=== PATIENT | male | born 1975 ===

== ENCOUNTER → 2020-05-14 08:05 | Outpatient (CLI) | payer OTHER, SELFPAY ==
--- NOTE | ~2020-05-14 | MR_ITS ---
EXAMINATION: MR hand LT wo con DATE: 05/14/2020 09:13 INDICATION: Left thumb injury and swelling. TECHNIQUE: Magnetic resonance imaging (MRI) of the left hand was performed without intravenous contra st. Sequences included axial, coronal, and sagittal T1-weighted FSE and T2-weighted FS FSE. COMPARISON: None FINDINGS: Bone alignment is normal. No fracture. There is mild osteoarthritis of first carpometacarpa l joint and moderate osteoarthritis of first metacarpophalangeal joint and first interphalangeal join t. There is bone marrow edema of head of first metacarpal and in first proximal phalanx, likely stres s reaction. There is a partial tear of ulnar collateral ligament at first metacarpophalangeal joint c haracterized by thickening and increased signal intensity with non-smooth margins. The aponeurosis of the adductor pollicis muscle is in normal position. The flexor and extensor tendons are normal. Ther e is subcutaneous edema in the thumb. A skin marker overlies the thumb. IMPRESSION: 1. Partial tear of ulnar collateral ligament of the thumb at the metacarpophalangeal joint. No Stener lesion. 2. Polyarticular osteoarthritis. Reviewed, dictated and finalized at location A. SAFETY MANAGER IMPRESSION: 1. Partial tear of ulnar collateral ligament of the thumb at the metacarpophala ngeal joint. No Stener lesion. 2. Polyarticular osteoarthritis.
== END ==
DX: S63.105D Unspecified dislocation of left thumb, subsequent encounter (principal); X58.XXXD Exposure to other specified factors, subsequent encounter; M19.042 Primary osteoarthritis, left hand
CPT/HCPCS: 73218

== ENCOUNTER 2020-10-30 15:59 | Inpatient (IN) | payer OTHER, SELFPAY ==
[2020-10-30] VITALS (34 sets, daily range): BP systolic 147–186; BP diastolic 77–138; PULSE 110–131; RESP 16–24; TEMP 36.8–37.6; O2SAT 94–98
--- NOTE | ~2020-10-30 | CT_ITS ---
EXAMINATION: CTA chest PE protocol DATE: 10/30/2020 21:59 INDICATION: Shortness of breath and chest pain TECHNIQUE: Computed tomography (CT) of the chest was performed with 100 cc Omnipaque 350 intravenous contrast. Automated exposure control and iterative reconstruction technique were employed. Exam dose: 597.67 mGy-cm total exam DLP. COMPARISON: 10/30/2020 portable AP chest FINDINGS: Normal heart size. No pericardial or pleural effusion. No thoracic aortic aneurysm or dissection. No evidence of pulmonary embolism is detected. This mild limitation due to streak artifact from contr ast material bolus and breathing. No hilar or mediastinal mass lesion or lymphadenopathy. No pulmonary infiltrate or consolidation or pulmonary mass lesion. There is diffuse hepatic steatosis. Small sliding hiatal hernia. Included skeletal structures are unremarkable. IMPRESSION: No evidence of pulmonary embolism Hepatic steatosis Small sliding hiatal hernia Reviewed, dictated and finalized at Location A. Reviewed, dictated and finalized at location A.
--- NOTE | ~2020-10-30 | XR_ITS ---
EXAMINATION: XR chest 1V portable DATE: 10/30/2020 16:50 INDICATION: Medial chest pressure/tightness TECHNIQUE: frontal view of the chest was obtained. COMPARISON: None FINDINGS: The lungs are clear with no focal airspace opacities, pulmonary edema, pleural effusion or pneumothor ax. The cardiomediastinal silhouette is normal. Visualized bones and soft tissues are unremarkable. IMPRESSION: 1. No acute cardiopulmonary disease. Reviewed, dictated and finalized at location A.
--- NOTE | ~2020-10-30 | CT_ITS ---
EXAMINATION: CT brain wo con INDICATION: Dizziness COMPARISON: None TECHNIQUE: Standard unenhanced head CT. The dose-length product (DLP) was 605.33 mGy-cm. The mA was a djusted according to patient size. Iterative reconstruction technique was employed. FINDINGS: There is no intracranial hemorrhage, acute infarction, or abnormal mass lesion. The ventric les are normal. There is no abnormal mass effect or midline shift. The mayo-white matter differentiat ion is normal. The basal cisterns are patent. The orbits are normal. The paranasal sinuses, mastoids and calvarium are normal. IMPRESSION: 1. No acute intracranial abnormality. Reviewed, dictated and finalized at location B.
--- NOTE | 2020-10-30 16:38 | ECG_ITS ---
Measurements Intervals [place] Rate: 119 P: 20 LA: 151 QRS: 54 QRSD: 77 T: 56 QT: 301 QTc: 424 Interpretive Statements SINUS TACHYCARDIA BASELINE ARTIFACT- II, III, AVR, AVF, V3-V6 ABNORMAL ECG Electronically Signed On 10-30-2020 18:03:28 CDT by Nixon Coppola D.O.
[2020-10-30 17:04] LABS: Basophils Absolute Auto 0.1 K/mm3 (0.0-0.1); Basophils Percent Auto 1.3 % (0.2-1.2); Hemoglobin 17.3 g/dL (14.0-18.0); Immature Granulocyte Absolute 0.01 K/mm3 (0.00-0.031); Immature Granulocyte Percent A 0.2 % (0-0.5); Lymphocytes Absolute Auto 1.05 K/mm3 (0.9-3.2); Mean Corpuscular HGB Conc 34.6 g/dl (32-36); Mean Corpuscular Volume 86.7 fl (80-100); Mean Platelet Volume 8.7 fl (7.4-10.4); Monocytes Absolute Auto 0.5 K/mm3 (0.1-0.6); Monocytes Percent Auto 7.3 % (2.6-8.5); Neutrophils Absolute Auto 4.6 K/mm3 (1.3-6.7); Neutrophils Percent Auto 74.2 % (45.5-73.1); Platelet Count Result 301 k/mm3 (150-375); Red Blood Count 5.77 M/mm3 (4.6-6.20); Red Cell Distribution Width 12.7 % (11.5-14.5); White Blood Count 6.2 K/mm3 (4.5-10.0)
[2020-10-30 17:22] LABS: Alanine Aminotransferase 93 U/L (4-50); Albumin Level 5.2 g/dL (3.5-5.1); Alkaline Phosphatase 95 U/L (38-126); Anion Gap 24 mmol/L (8-16); Aspartate Amino Transferase 82 U/L (17-59); Blood Urea Nitrogen 14 mg/dL (9-20); Calcium 9.4 mg/dL (8.4-10.2); Carbon Dioxide 15 mmol/L (22-30); Chloride 99 mmol/L (98-107); Estimated CRCL calculation 99 ml/min; Estimated Glomerular Filt Rate > 60; Glucose 88 mg/dL (65-110); Lipase 78 U/L (23-300); Potassium 4.8 mmol/L (3.4-5.0); Sodium 138 mmol/L (137-145)
[2020-10-30 17:32] LABS: NT Pro B Type Natriuretic Pept 18 pg/mL (5-100); Troponin I < 0.012 ng/mL (0.000-0.034)
[2020-10-30 17:33] LABS: Partial Thromboplastin Time 24.5 SECONDS (22.3-36.8)
[2020-10-30 18:09] LABS: INR 0.9
[2020-10-30 18:12] LABS: Add Urine Microscopic? YES; Appearance Urine Clear (Clear); Bacteria Urine Trace /hpf; Bilirubin Urine Negative (Negative); Blood Urine 1+ (Negative); Color Urine Yellow (Yellow); Glucose Urine UA Negative (Negative); Ketones Urine 2+ mg/dL (Negative); Leukocyte Esterase Ur Negative LEU/UL (Negative); Mucus Urine Rare /lpf; Nitrate Urine Negative (Negative); Protein Urine 2+ mg/dL (Negative); RBC Urine 0-2 /hpf (0-2); Specific Grav Ur 1.026 (1.001-1.035); Squamous Epithelial Cell Urine Rare /hpf (Few); Urobilinogen Urine Negative mg/dL (<2.0); WBC Urine 0-3 /hpf
[2020-10-30] MEDS: THIAMINE HCL INJ 100 MG, FOLIC ACID INJ 1 MG, MULTIVITAMINS-12 INJ VIAL 1 5 ML, MULTIVI... 999 MG IV CONT (18:19)
[2020-10-30] MEDS: FAMOTIDINE 20 MG/2 ML VIAL IV PUSH (18:19)
[2020-10-30] MEDS: chlordiazePOXIDE (*CRX) 25 MG CAPSULE PO (18:19)
[2020-10-30] MEDS: LACTATED RINGERS 1,000 ML 999 ML IV CONT (18:26)
--- NOTE | 2020-10-30 18:50 | ED.GENADULT ---
HPI - General Adult General Chief complaint: Unspecified <Abhi Moran PA-C - Last Filed: 10/30/20 21:23> Stated complaint: not feeling right <NUPUR Randolph Last Filed: 10/30/20 21:23> Time Seen by Provider: 10/30/20 16:05 <NUPUR Randolph Last Filed: 10/30/20 21:23> Source: patient and RN notes reviewed <NUPUR Randolph Last Filed: 10/30/20 21:23> Mode of arrival: ambulatory <NUPUR Randolph Last Filed: 10/30/20 21:23> Limitations: no limitations <NUPUR Randolph Last Filed: 10/30/20 21:23> History of Present Illness HPI narrative: Patient is a 45-year-old male who presents for evaluation of not feeling well this morning noting that he felt discomfort in the chest and though his heart were beating fast patient does admit to being intoxicated last night. Patient notes that he has had some alcohol today. Patient has signed up for reevaluation by [facility] for the specific reason of alcohol abuse. Patient has had treatment in the past for this. Patient denies any suicidal or homicidal ideation. Patient notes that he would like to get help for his alcohol abuse. Patient denies recent illness vomiting diarrhea. On arrival patient denies chest pain. <NUPUR Randolph Last Filed: 10/30/20 21:23> Related Data Home medications: Home Medications Medication Instructions Recorded Confirmed escitalopram oxalate [Lexapro] 20 mg PO DAILY 10/31/20 10/31/20 <NUPUR Randolph Last Filed: 10/30/20 21:23> Allergies/adverse reactions: Allergies Allergy/AdvReac Type Severity Reaction Status Date / Time cephalexin Allergy Intermediate Rash Verified 10/31/20 12:26 <NUPUR Randolph Last Filed: 10/30/20 21:23> Review of Systems Review of Systems: All systems reviewed & are unremarkable except as noted in HPI and below <NUPUR Randolph Last Filed: 10/30/20 21:23> [facility] Past Medical History Medical History: Medical History (Updated 10/31/20 @ 14:05 by Shonda Bishop PA-C) Alcohol abuse Anxiety Erectile dysfunction Essential hypertension Insomnia <Abhi Moran PA-C - Last Filed: 10/30/20 21:23> Family History Family History: Family History Father Family history of cardiovascular disease Grandparent Family history of cardiovascular disease Other Diabetes mellitus Family history of arthritis Hypertension <Abhi Moran PA-C - Last Filed: 10/30/20 21:23> Social History Social History: Social History Smoking status: Never smoker Alcohol intake: current Drinks per week: 21 Substance use: never Substance use type: does not use Spiritual care concerns: No <Abhi Moran PA-C - Last Filed: 10/30/20 21:23> Exam Narrative: Exam Narrative: GENERAL: Well-appearing, well-nourished, and in no acute distress. HEAD: Normocephalic, atraumatic. EYES: PERRLA and EOMI. ENT: Nares clear, no rhinorrhea or epistaxis. Mucous membranes moist. CHEST: Clear to auscultation. No respiratory distress. No wheezes rales or rhonchi HEART: Regular rate and rhythm. No murmur heard. Normal peripheral pulses. ABDOMEN: Soft, nontender, nondistended EXTREMITIES: Normal range of motion. No edema. SKIN: Warm, dry, no rash. NEURO: No focal deficits. Alert and oriented x3. Cranial nerves II through XII grossly intact PSYCH: Normal mood and affect. <Abhi Moran PA-C - Last Filed: 10/30/20 21:23> Course Course Emergency Course: Patient continued to have some lightheadedness feels slightly dyspneic will scan his chest at this time given the tachycardia to rule out pulmonary embolus as a cause patient has been hydrated medicated this time is nontoxic-appearing and afebrile <Ahbi Moran PA-C - Last Filed: 10/30/20 21:23> Reevaluation(
[2020-10-30] MEDS: LORazepam INJ (*CRX) 2 MG/ML VIAL 1 MG IV PUSH (20:08)
[2020-10-30] MEDS: ONDANSETRON INJ 4 MG/2 ML VIAL IV PUSH (20:08)
[2020-10-30 20:29] LABS: Troponin I < 0.012 ng/mL (0.000-0.034)
[2020-10-30] MEDS: SODIUM CHLORIDE 0.9% IV 1,000 ML 999 ML IV CONT (21:26)
[2020-10-30 22:29] LABS: Alveolar/Arterial O2 Gradient 27.4 mmHg; Base Excess ABG -7.9 mEq/l (+/-2.0); Fractional Inspired Oxygen 21 %; HCO3 ABG 16.8 mEq/l (22.0-26.0); Oxygen Content ABG 20.4 %vol (16.0-22.0); Oxygen Saturation ABG 95.7 % (95.0-100.0); PCO2 ABG 32.4 mmHg (35.0-45.0); PO2 ABG 83.5 mmHg (80.0-100.0); PO2 FiO2 Ratio Arterial Blood 3.98 %; Total Hemoglobin 15.4 g/dL (12.0-18.0); pH ABG 7.332 (7.350-7.450)
[2020-10-30 22:30] LABS: Device ROOM AIR; Modified Allen's Test Pass; Site Drawn LEFT RADIAL
[2020-10-30 22:58] LABS: Barbiturate Screen Urine Negative (Negative); Benzodiazepines Screen Urine Negative (Negative)
[2020-10-30 22:59] LABS: Amphetamine Screen Urine Negative (Negative); Cannabinoid Screen Urine Negative (Negative); Cocaine Screen Urine Negative (Negative); Opiate Screen Urine Negative (Negative); Phencyclidine Screen Urine Negative (Negative)
[2020-10-30 23:03] LABS: Ethanol 76 mg/dL (<10)
[2020-10-30 23:12] LABS: Troponin I 0.014 ng/mL (0.000-0.034)
[2020-10-30] MEDS: LABETALOL HCL INJ 100 MG/20 ML VIAL 20 MG IV PUSH (23:32)
[2020-10-30 23:34] LABS: Methadone Screen Urine Negative (Negative)
[2020-10-31] VITALS (18 sets, daily range): BP systolic 155–213; BP diastolic 81–112; PULSE 76–125; RESP 16–24; TEMP 36.4–37.1; O2SAT 91–100; BMI 32.5
--- NOTE | 2020-10-31 | ECHO_ITS ---
Patient Info Name: Dima Rosa Age: 45 years : 1975 Gender: Male Ht: 70 in Wt: 230 lbs BSA: 2.30 m2 HR: 98 bpm BP: 212 / 108 mmHg Technical Quality: Good Exam Date: 10/31/2020 10:44 AM Exam Location: [facility] Patient Status: Inpatient Admit Date: 10/31/2020 Staff Ordering Physician: Shonda Bishop PA-C Salt Grinder: Keli Nuñez RDCS Attending Provider: Shonda Bishop PA-C Referring Physician: Dario RAO; Exam Type: CA echo doppler color flow Study Info Indications R00.2 - Palpitations Complete two-dimentional, color flow and Doppler transthoracic echocardiogram is performed with agitated saline and with contrast to opacify the left ventricle and to improve the delineation of the left ventricle endocardial borders. Summary 1. Left ventricular chamber dimension is normal. 2. Left ventricular systolic function is normal, estimated at 65-70%. 3. There is mildly increased left ventricular wall thickness. 4. The left ventricular diastolic function is grade I diastolic dysfunction. 5. E/e' 7 is not elevated. 6. Left atrial chamber dimension is mildly enlarged. 7. No pulmonary hypertension, estimated pulmonary arterial systolic pressure is 29 mmHg. Left Ventricle E/e' 7 is not elevated. Left ventricular chamber dimension is normal. Left ventricular systolic function is normal, estimated at 65-70%. There is mildly increased left ventricular wall thickness. The left ventricular diastolic function is grade I diastolic dysfunction. Right Ventricle Right ventricular chamber dimension is normal. Right ventricular systolic function is normal. Left Atria Left atrial chamber dimension is mildly enlarged. Right Atria Right atrial chamber dimension is normal. Aortic Valve The aortic valve is trileaflet. There is no aortic valve stenosis. There is no aortic valve regurgitation. Pulmonic Valve There is no pulmonic regurgitation. Mitral Valve There is no mitral valve stenosis. There is no mitral valve regurgitation. Tricuspid Valve There is no tricuspid valve regurgitation. No pulmonary hypertension, estimated pulmonary arterial systolic pressure is 29 mmHg. Pericardium/Pleural There is no pericardial effusion. Inferior Vena Cava Normal inferior vena cava with >50% collapse upon inspiration consistent with normal right atrial pressure, 5 mmHg. Aorta The aortic root size at the sinus of Valsalva is normal. Left Ventricular Outflow Tract Name Value Normal LVOT 2D LVOT Diameter 2.1 cm LVOT Doppler LVOT Peak Gradient 6 mmHg LVOT Mean Gradient 4 mmHg LVOT VTI 27 cm LVOT VTI/AV VTI Ratio 0.9 LVOT Stroke Volume 94 ml LVOT CO 21.4 l/min LVOT CI 9.3 l/min/m2 Pulmonic Valve Name Value Normal
[2020-10-31 00:22] LABS: Lactic Acid Reflex 3.1 mmol/L (0.7-2.1)
--- NOTE | 2020-10-31 00:50 | ADMGEN ---
This patient, Dima Rosa, was admitted to Medical Room 251-. Patient/family oriented to hospital policies and general routines including ID bracelet, bed and alarms, visiting hours, pain management, procedures, bathroom and other care routines, personal items, smoking policy, room service/diet, and visiting hours. Information on how to activate the Rapid Response Team has been discussed. Patient/Family are encouraged to report perceived risks to care and to ask questions if they do not understand what they are told or what they should do.
[2020-10-31] MEDS: SODIUM CHLORIDE 0.9% IV 1,000 ML 125 ML IV CONT (01:07)
--- NOTE | 2020-10-31 01:39 | PM.IMHP ---
H&P: HPI History of Present Illness Date/Time: 10/31/20 01:39 Chief Complaint: CHEST DISCOMFORT Narrative: THIS IS A 45-YEAR-OLD MALE WITH PAST MEDICAL HISTORY SIGNIFICANT FOR GENERALIZED ANXIETY DISORDER, ALCOHOL ABUSE. PATIENT PRESENTED TO THE EMERGENCY ROOM AFTER HE WAS AT HOME MOVING HEAVY OBJECTS AROUND AND HE FELT LIGHTHEADED AND HIS HEART POUNDING IN HIS CHEST HE DECIDED TO COME TO THE EMERGENCY ROOM. UPON PRESENTATION TO THE EMERGENCY ROOM HE WAS FOUND TO BE IN SINUS TACHYCARDIA. PATIENT HAD BEEN DRINKING WELL. HE HAS BEEN IN HIS USUAL STATE OF HEALTH UP UNTIL THESE HE DENIES ANY SHORTNESS OF BREATH COUGH SPUTUM PRODUCTION CHEST PAIN WITH ACTIVITY PND ORTHOPNEA LEG SWELLING CLAUDICATION ON LIGHTHEADEDNESS. PRELIMINARY WORKUP WAS SIGNIFICANT FOR METABOLIC ACIDOSIS AND KETONES PRESENT AN ELEVATED ALCOHOL LEVEL WITH ABNORMAL LIVER ENZYME IS SLIGHTLY ABOVE NORMAL. DECISION HAS BEEN MADE TO PLACE THE PATIENT IN OBSERVATION. Review of Systems Review of Systems: Narrative: POUNDING OF THE CHEST Constitutional: Constitutional: Denies chills, Denies fatigue, Denies fever(s), Denies lethargy and Denies weakness Eyes: Eyes: Denies change in vision ENT: Denies dysphagia, Denies nasal congestion and Denies nasal obstruction Cardiovascular: Cardiovascular: Denies syncope, Denies irregular heart rhythm, Denies claudication, Denies radiating jaw, neck or arm pain, Reports palpitations, Denies dyspnea, Denies dyspnea on exertion and Denies paroxysmal nocturnal dyspnea Respiratory: Respiratory: Denies cough and Denies dyspnea Gastrointestinal: Gastrointestinal: Denies dyspepsia, Denies heartburn, Denies diarrhea, Denies nausea and Denies vomiting Genitourinary: Genitourinary: Reports no additional male genitourinary complaints Musculoskeletal: Musculoskeletal: Reports no additional musculoskeletal complaints Integumentary/Breasts: Skin/Breast: Reports system reviewed and no additional complaints, except as docu Neurologic: Reports system reviewed and no additional complaints, except as documented Psychiatric: Psychiatric: Reports no additional psychiatric complaints Endocrine: Endocrine: Reports no additional endocrine complaints Hematologic/Lymphatic: Hematologic/Lymphatic: Reports no additional hematologic/lymphatic complaints Allergic/Immunologic: Allergic/Immunologic: Reports no additional allergic/immunologic complaints [facility] Past Medical History Medical History (Updated 10/31/20 @ 01:46 by Kem Soto MD) Alcohol abuse Anxiety Erectile dysfunction Essential hypertension Insomnia Family History Family History Father Family history of cardiovascular disease Grandparent Family history of cardiovascular disease Other Diabetes mellitus Family history of arthritis Hypertension Social History Social History Smoking status: Never smoker Alcohol intake: current Drinks per week: 21 Substance use: never Substance use type: does not use Spiritual care concerns: No Meds Home Medications and Allergies Home Medications Medication Instructions Recorded Confirmed Type escitalopram oxalate [Lexapro] 20 mg PO DAILY 10/31/20 10/31/20 History Allergies Allergy/AdvReac Type Severity Reaction Status Date / Time cephalexin AdvReac Intermediate Rash Verified 10/31/20 01:05 Vital Signs Vital Signs - 24 hr 10/30/20 15:58 10/30/20 16:22 10/30/20 17:00 Temperature 99.7 F H Pulse Rate 127 H 130 H 117 H Respiratory Rate 20 19 19 Blood Pressure 164/102 H 159/95 H Pulse Oximetry 96 95 97 10/30/20 17:03 10/30/20 17:15 10/30/20 17:16 Temperature Pulse Rate 119 H 120 H 123 H Respiratory Rate 22 H 16 18 Blood Pressure 158/93 H 156/92 H Pulse Oximetry 95 97 95 10/30/20 17:30 10/30/20 17:31 10/30/20 17:45 Temperature Pulse Rate 127 H 116 H 115 H Respirator
[2020-10-31 03:07] LABS: Reflex Lactic Acid Yes or No Add Lactic
[2020-10-31 03:36] LABS: Lactic Acid 1.3 mmol/L (0.7-2.1)
[2020-10-31] MEDS: THIAMINE HCL INJ 100 MG, FOLIC ACID INJ 1 MG, MULTIVITAMINS-12 INJ VIAL 1 5 ML, MULTIVI... IV CONT (04:29)
[2020-10-31 08:35] LABS: Alanine Aminotransferase 75 U/L (4-50); Albumin Level 4.6 g/dL (3.5-5.1); Alkaline Phosphatase 72 U/L (38-126); Anion Gap 12 mmol/L (8-16); Aspartate Amino Transferase 60 U/L (17-59); Bilirubin,Total 1.8 mg/dL (0.2-1.3); Blood Urea Nitrogen 9 mg/dL (9-20); Calcium 8.6 mg/dL (8.4-10.2); Carbon Dioxide 21 mmol/L (22-30); Chloride 101 mmol/L (98-107); Estimated CRCL calculation 99 ml/min; Estimated Glomerular Filt Rate > 60; Glucose 95 mg/dL (65-110); Potassium 4.4 mmol/L (3.4-5.0); Sodium 134 mmol/L (137-145)
[2020-10-31 08:46] LABS: Troponin I < 0.012 ng/mL (0.000-0.034)
[2020-10-31] MEDS: ENOXAPARIN 40 MG/0.4 ML SYRINGE SUB-Q (09:10)
[2020-10-31] MEDS: ESCITALOPRAM OXALATE 10 MG TABLET 20 MG PO (09:10)
[2020-10-31] MEDS: hydrALAZINE HCL 20 MG/ML VIAL 10 MG IV PUSH ×2 (09:11→17:52)
[2020-10-31] MEDS: LABETALOL HCL INJ 100 MG/20 ML VIAL 20 MG IV PUSH (10:58)
[2020-10-31] MEDS: ONDANSETRON INJ 4 MG/2 ML VIAL IV PUSH (12:59)
[2020-10-31] MEDS: PANTOPRAZOLE 40 MG TABLET PO (12:59)
[2020-10-31] MEDS: amLODIPine BESYLATE 5 MG TABLET PO (12:59)
[2020-10-31] MEDS: chlordiazePOXIDE (*CRX) 25 MG CAPSULE PO ×2 (12:59→20:40)
--- NOTE | 2020-10-31 14:01 | PM.IMPN ---
Progress Note: A&P Assessment and Plan (1) Uncontrolled hypertension: Code(s): I10 - Essential (primary) hypertension Status: Acute Assessment and Plan: Patient has had uncontrolled hypertension all morning with the highest being 213/112 now 184/94 -he has received hydralazine, labetalol, and amlodipine thus far - he has no signs and symptoms of chest pain, shortness of breath or stroke-like symptoms - Librium also started - will continue adjusting medications until blood pressure is closer to goal. plan to decrease by 25% within the next 24-48 hours -Pt to let us know immediately if he has CP or any neurological symptom. Librium also started for anxiety component (2) Alcohol withdrawal: Code(s): F10.239 - Alcohol dependence with withdrawal, unspecified Status: Acute Assessment and Plan: patient appeared anxious on exam with tremor -he drinks about a pt of vodka a day - will start Librium 25 mg scheduled and p.r.n. Ativan - no history of withdrawal seizures - monitor closely (3) Transaminitis: Code(s): R74.01 - Elevation of levels of liver transaminase levels Status: Acute Assessment and Plan: up likely due to alcohol abuse - check hepatitis screen in the morning - consider right upper quadrant ultrasound if they worsen. Chest CT did show hepatic steatosis (4) Anxiety: Code(s): F41.9 - Anxiety disorder, unspecified Status: Acute Assessment and Plan: Continue librium -improved with this medication Time Spent With Patient Time with patient: 25 - 35 minutes Subjective Date/time seen: 10/31/20 14:01 Interval history: Pt is a 45-year-old male here for uncontrolled hypertension. Patient was seen today and was feeling anxious. He says his last drink was Saturday afternoon and he is starting to have tremors. He usually drinks half a pt to a pt of vodka a day and has done that for years. He has no history of withdrawal seizures but has never been able to quit in the past. He has not been having any hallucinations although he does feel clammy. He denies chest pain, palpitations, headache, double vision, stroke-like symptoms, or vomiting. He had some nausea last night and again this morning. He says he has no history of elevated blood pressure that he knows of. He denies jaw pain and arm pain. he has no thoughts of harming himself or others. Review of Systems Review of Systems: All systems reviewed & are unremarkable except as noted in HPI and below Exam Narrative: Exam Narrative: General: Well developed well nourished patient in NAD HEENT: normocephalic Neck: supple Neuro: Alert and oriented x4. slight tremor noted on exam CV:RRR. telemetry shows sinus tachycardia earlier today which has improved. Resp:CTA Abd: Soft, non distended. No pain to palpation. Positive bowel sounds Extremities: No swelling, erythema, or pain to palpation. Objective Data Vital Signs Vital Signs: Vital Signs - 24 hr 10/30/20 15:58 10/30/20 16:22 10/30/20 17:00 Temperature 99.7 F H Pulse Rate 127 H 130 H 117 H Respiratory Rate 20 19 19 Blood Pressure 164/102 H 159/95 H Pulse Oximetry 96 95 97 10/30/20 17:03 10/30/20 17:15 10/30/20 17:16 Temperature Pulse Rate 119 H 120 H 123 H Respiratory Rate 22 H 16 18 Blood Pressure 158/93 H 156/92 H Pulse Oximetry 95 97 95 10/30/20 17:30 10/30/20 17:31 10/30/20 17:45 Temperature Pulse Rate 127 H 116 H 115 H Respiratory Rate 19 19 20 Blood Pressure 147/77 H Pulse Oximetry 96 96 96 10/30/20 17:46 10/30/20 18:00 10/30/20 18:01 Temperature Pulse Rate 120 H 121 H 122 H Respiratory Rate 23 H 20 21 H Blood Pressure 151/86 H 156/138 H Pulse Oximetry 96 95 94 10/30/20 18:15 10/30/20 18:16 10/30/20 18:30 Temperature Pulse Rate 128 H 124 H 114 H Respiratory Rate 21 H 19 18 Blood Pressure 149/102 H Pulse Oximetry 95 94 97 10/30/20 18:31 10/30/20 18:45
[2020-10-31] MEDS: LABETALOL HCL INJ 100 MG/20 ML VIAL IV PUSH (21:31)
[2020-11-01] VITALS (7 sets, daily range): BP systolic 148–177; BP diastolic 84–104; PULSE 87–127; RESP 17–20; TEMP 35.8–36.8; O2SAT 96–98
[2020-11-01] MEDS: chlordiazePOXIDE (*CRX) 25 MG CAPSULE PO ×3 (05:29→20:58)
[2020-11-01 05:37] LABS: Hematocrit 45.2 % (42.0-52.0); Hemoglobin 15.7 g/dL (14.0-18.0); Mean Corpuscular HGB Conc 34.7 g/dl (32-36); Mean Corpuscular Hemoglobin 29.8 pg (26-34); Mean Corpuscular Volume 85.8 fl (80-100); Platelet Count Result 201 k/mm3 (150-375); Red Blood Count 5.27 M/mm3 (4.6-6.20); Red Cell Distribution Width 12.4 % (11.5-14.5); White Blood Count 6.4 K/mm3 (4.5-10.0)
[2020-11-01 05:44] LABS: Alanine Aminotransferase 71 U/L (4-50); Albumin Level 4.3 g/dL (3.5-5.1); Alkaline Phosphatase 70 U/L (38-126); Anion Gap 10 mmol/L (8-16); Aspartate Amino Transferase 58 U/L (17-59); Bilirubin,Total 1.4 mg/dL (0.2-1.3); Blood Urea Nitrogen 8 mg/dL (9-20); Calcium 9.1 mg/dL (8.4-10.2); Carbon Dioxide 25 mmol/L (22-30); Chloride 101 mmol/L (98-107); Estimated CRCL calculation 98 ml/min; Estimated Glomerular Filt Rate > 60; Glucose 94 mg/dL (65-110); Potassium 3.6 mmol/L (3.4-5.0); Sodium 136 mmol/L (137-145)
[2020-11-01 07:12] LABS: Hepatitis B Surface Antigen Negative (Negative)
[2020-11-01 07:18] LABS: HAV RESULT Negative (Negative); Hepatitis B Core IgM Result Negative (Negative)
[2020-11-01 07:30] LABS: Hepatitis C Virus Antibody Negative (Negative)
[2020-11-01] MEDS: ESCITALOPRAM OXALATE 10 MG TABLET 20 MG PO (09:26)
[2020-11-01] MEDS: amLODIPine BESYLATE 5 MG TABLET PO (09:26)
[2020-11-01] MEDS: FOLIC ACID 1 MG TABLET PO (09:26)
[2020-11-01] MEDS: PANTOPRAZOLE 40 MG TABLET PO (09:26)
[2020-11-01] MEDS: THIAMINE HCL 100 MG TABLET PO (09:26)
[2020-11-01] MEDS: ENOXAPARIN 40 MG/0.4 ML SYRINGE SUB-Q (09:26)
--- NOTE | 2020-11-01 12:00 | PM.IMPN ---
Progress Note: A&P Assessment and Plan (1) Uncontrolled hypertension: Code(s): I10 - Essential (primary) hypertension Status: Acute Assessment and Plan: Patient has had uncontrolled hypertension all morning with the highest being 213/112. Slowly improving with 25% reduction in systolic BP in 24 hrs. Last BP 156/100 - he has received hydralazine, labetalol, and amlodipine thus far - continue with amlodipine 5 mg. Recheck this afternoon. consider uptitration of medication or additional agent based on BP trends - he has no signs and symptoms of chest pain, shortness of breath or stroke-like symptoms - will continue adjusting medications until blood pressure is closer to goal. - Pt instructed to inform staff immediately if he has CP or any neurological symptom. Librium also started for anxiety component (2) Alcohol withdrawal: Code(s): F10.239 - Alcohol dependence with withdrawal, unspecified Status: Acute Assessment and Plan: Drinks approximately 1 pint of vodka daily. - Last drink was 10/30/20 in the afternoon - Feeling okay today with improvement in anxiety and tremor - Continue CIWA protocol. Scores ranging from 2-3. - Continue Librium 25 mg q8h scheduled. Plan to taper based on symptoms - Ativan prn CIWA >8 - He is considering inpatient rehab. Care coordination following for resources (3) Transaminitis: Code(s): R74.01 - Elevation of levels of liver transaminase levels Status: Acute Assessment and Plan: Improving. Likely due to alcohol abuse - hepatitis panel negative - consider right upper quadrant ultrasound if worsening. - hepatic steatosis noted on CT. Lifestyle modifications discussed. (4) Anxiety: Code(s): F41.9 - Anxiety disorder, unspecified Status: Acute Assessment and Plan: Improved today -improved with librium Subjective Date/time seen: 11/01/20 12:00 Interval history: Date of service: 11/01/2020 Dima Rosa is a 45-year-old male with history of alcohol abuse, anxiety, and hypertension who is seen in follow-up for uncontrolled hypertension and alcohol withdrawal. states 1 time before he was in the hospital and was given medicine for blood pressure but has not taken any antihypertensives since this time and has not followed up for blood pressure monitoring His last drink was in the afternoon on 10/30/2020. He is feeling better. He denies headache. Denies chest pain, palpitations, shortness of breath. No dizziness or lightheadedness. No nausea or vomiting. He is able to tolerate his regular diet. Reports only very mild tremor. Occasional sweats. No fevers. Denies hallucinations or confusion. No agitation or restlessness. He slept well last night. Denies cough. Denies dysuria. No diarrhea or constipation. States that he is considering inpatient rehab programs. He has some program information at the bedside and is planning to call some places today. Review of Systems Review of Systems: All systems reviewed & are unremarkable except as noted in HPI and below Exam Narrative: Exam Narrative: Mr. Rosa is a well-nourished, well-appearing 45-year-old male who is lying semi recumbent bed. he appears comfortable and is in NARD. Neuro: awake, alert and oriented x4, speech clear, no focal neuro deficits noted, no tremor noted with outstretched hand HEENMT: normocephalic, atraumatic, EOMI, sclerae anicteric, moist oral mucosa Neck: supple, no lymphadenopathy Respiratory: clear to auscultation bilaterally, nonlabored breathing Cardio: regular rate, regular rhythm with S1-S2 Abdomen: nondistended, normoactive bowel sounds, soft, nontender to palpation Extremities: no edema, erythema, cyanosis, clubbing, or tenderness to palpation, DP pulses 2+ bilaterally Skin: no rashes or lesions, warm and slightly doamp Psych: appropriate mood and affect, judgment and insight intact Objective Data Vital Signs Cat
[2020-11-01] MEDS: hydrALAZINE HCL 20 MG/ML VIAL 10 MG IV PUSH (14:18)
[2020-11-01] MEDS: LABETALOL HCL INJ 100 MG/20 ML VIAL IV PUSH (21:50)
[2020-11-02] VITALS (7 sets, daily range): BP systolic 123–156; BP diastolic 63–92; PULSE 66–130; RESP 18–20; TEMP 36.6–36.8; O2SAT 94–98
[2020-11-02 06:01] LABS: Alanine Aminotransferase 103 U/L (4-50); Albumin Level 4.2 g/dL (3.5-5.1); Alkaline Phosphatase 65 U/L (38-126); Anion Gap 12 mmol/L (8-16); Aspartate Amino Transferase 86 U/L (17-59); Bilirubin,Total 1.3 mg/dL (0.2-1.3); Blood Urea Nitrogen 15 mg/dL (9-20); Calcium 9.3 mg/dL (8.4-10.2); Carbon Dioxide 23 mmol/L (22-30); Chloride 99 mmol/L (98-107); Estimated CRCL calculation 98 ml/min; Estimated Glomerular Filt Rate > 60; Glucose 93 mg/dL (65-110); Potassium 3.3 mmol/L (3.4-5.0); Sodium 134 mmol/L (137-145)
[2020-11-02] MEDS: chlordiazePOXIDE (*CRX) 25 MG CAPSULE PO ×2 (06:13→13:19)
[2020-11-02] MEDS: POTASSIUM CHLORIDE 20 MEQ TABLET PO (09:25)
[2020-11-02] MEDS: PANTOPRAZOLE 40 MG TABLET PO (09:25)
[2020-11-02] MEDS: ESCITALOPRAM OXALATE 10 MG TABLET 20 MG PO (09:25)
[2020-11-02] MEDS: ENOXAPARIN 40 MG/0.4 ML SYRINGE SUB-Q (09:25)
[2020-11-02] MEDS: FOLIC ACID 1 MG TABLET PO (09:25)
[2020-11-02] MEDS: THIAMINE HCL 100 MG TABLET PO (09:25)
[2020-11-02] MEDS: amLODIPine BESYLATE 5 MG TABLET 10 MG PO (09:25)
[2020-11-02] MEDS: SODIUM CHLORIDE 0.9% IV 500 ML IV CONT (13:19)
--- NOTE | 2020-11-02 16:11 | PM.DS ---
DS: Admitting Diagnosis Admitting Diagnosis Admitting Diagnosis: Uncontrolled HTN DS: Discharge Diagnosis Discharge Diagnosis (1) Uncontrolled hypertension: Code(s): I10 - Essential (primary) hypertension Status: Acute Assessment and Plan: Patient present with elevated blood pressures up to 213/112. He had not been on any medication for hypertension prior to presentation. he received hydralazine, labetalol, and amlodipine and he did have slow improvement of blood pressure with 25% reduction in systolic BP over 24 hrs. he was started on amlodipine 10 mg daily and his blood pressures were better controlled. He will need to monitor his blood pressure at home and record for review by PCP for further adjustment of blood pressure medication. He remained asymptomatic without headaches, chest pain, or neurologic symptoms. (2) Alcohol withdrawal: Code(s): F10.239 - Alcohol dependence with withdrawal, unspecified Status: Acute Assessment and Plan: Drinks approximately 1 pint of vodka daily. Last drink was 10/30/20. Started on Librium and CIWA scores were between 0-5. he had symptoms of anxiety and tremor that did improve. He will continue with a Librium taper as an outpatient. He is interested in pursuing inpatient rehab. Resources were provided and he has been in contact with facilities. Alcohol cessation discussed at length. (3) Transaminitis: Code(s): R74.01 - Elevation of levels of liver transaminase levels Status: Acute Assessment and Plan: Improving. Likely due to alcohol abuse. Hepatitis panel negative. Additionally, hepatic steatosis noted on CT scan. Lifestyle modifications discussed. He will need to follow-up with his PCP for further monitoring. (4) Anxiety: Code(s): F41.9 - Anxiety disorder, unspecified Status: Acute Assessment and Plan: Improved with management of withdrawal symptoms. Continue Librium taper. Continue Lexapro (5) Sinus tachycardia: Code(s): R00.0 - Tachycardia, unspecified Status: Acute Assessment and Plan: Presented with palpitations. Monitored on telemetry and was noted to be tachycardic, mostly in the 110s, occasionally up to 130s. EKG at presentation demonstrated sinus tachycardia. CTA negative for PE. Echo with normal EF. TSH within normal limits. IV fluid bolus administered and he was euvolemic. Palpitations resolved and he was asymptomatic. Suspect related to alcohol withdrawal and anticipate continued improvement. DS: Summary Hospital Course Hospital Course: date of admission: 10/30/2020 date of discharge: 11/02/2020 Dima Rosa is a 45-year-old male with history of alcohol abuse, anxiety, and hypertension who presented to the emergency department on 10/30/20 with complaints of palpitations noting he had been intoxicated the night prior. Upon presentation to the emergency department, his BP was 201/97, he was tachycardic at 127, additional vital signs stable, CBC and BMP unremarkable, troponin negative, ethyl alcohol level was 76, TSH within normal limits, urine drug screen negative, lactic 1.3, CXR with no acute cardiopulmonary findings. He was admitted to the hospitalist service for further evaluation and management. Please see above for further details. His blood pressures improved and he was feeling better overall. Given improvement, he was determined to no longer require inpatient care and was felt to be stable for discharge. We discussed worrisome signs and symptoms for which to return and he was educated on his medications. Informed of need for BP monitoring at home with outpatient PCP follow up. He was discharged in hemodynamically stable condition on 11/02/20. Status at Discharge Functional status at discharge: independent ambulation Overall status at discharge: patient is progressing back to baseline Time Spent with Patient Time attestation: Total time spent providing an
== END 2020-11-02 17:45 | disposition home or self-care (01) | DRG 305 ==
LOC: ANHED 21:18 → ANH2MED 10-31 00:38
PROVIDERS: Emergency Medicine Emergency Medical Services; Physician Assistant; Admitting Provider Internal Medicine; Emergency Provider Emergency Medicine; PCP Internal Medicine; Visit Provider Physician Assistant
DX: F10.239 Alcohol dependence with withdrawal, unspecified (principal); E87.2 Acidosis; I10 Essential (primary) hypertension; F41.1 Generalized anxiety disorder; R25.1 Tremor, unspecified; R00.0 Tachycardia, unspecified; R74.01 Elevation of levels of liver transaminase levels; Z79.899 Other long term (current) drug therapy
CPT/HCPCS: 36415; 36600; 70450; 71045; 71275; 80053; 80074; 80307; 81001; 82805; 83605; 83690; 83880; 84443; 84484; 85025; 85027; 85610; 85730; 93005; 93306; 96361; 96365; 96367; 96374; 96375; 99285; A9270; G0378; J0131; J0360; J1650; J2060; J2405; J3411; J3475; J7030; J7040; J7042; J7120; Q9967